=== PATIENT | male | born 1965 | race Two or more races ===

== ENCOUNTER → 2016-11-12 | Outpatient (CLI) | payer OTHER ==
--- NOTE | 2016-11-12 19:04 | REP ---
RIGHT ANKLE SERIES: Four views of the right ankle performed. There is moderate soft tissue swelling laterally. No acute fracture or dislocation is seen. There appear to be old avulsion fractures of the medial malleolus. The ankle mortise is anatomic. There is inferior calcaneal spurring. IMPRESSION: Soft tissue swelling. Old avulsion fractures medial malleolus. No evidence for acute fracture or dislocation. Signed by George Ratliff MD 11/12/2016 07:30 P
--- NOTE | 2016-11-12 19:06 | REP ---
RIGHT FOOT SERIES: Four views of the right foot are performed. No acute fracture or dislocation is seen. There is mild to moderate inferior calcaneal spurring. There is mild narrowing of the first metatarsophalangeal joint. IMPRESSION: No acute fracture or dislocation. Signed by George Ratliff MD 11/12/2016 07:30 P
== END ==
LOC: M LRY 17:27
PROVIDERS: ATTEND Physician Assistant
DX: M25.571 Pain in right ankle and joints of right foot (principal)

== ENCOUNTER → 2020-05-04 | Outpatient (CLI) | payer OTHER ==
[~2020-05-04] MED LIST: AMLO1TAB24 PO; ATOR1TAB21 PO; LISI20TA35 PO
== END ==
LOC: M LABSMTC 08:43
PROVIDERS: ATTEND Anesthesiology
DX: Z01.812 Encounter for preprocedural laboratory examination (principal); Z20.828 Contact with and (suspected) exposure to other viral communicable diseases

== ENCOUNTER 2020-05-09 09:18 | Day surgery (SDC) | payer BC ==
[~2020-05-09] VITALS: Ht 177.8 cm; Wt 117.0 kg
[~2020-05-09 09:18] MED LIST changes: +NS 1,000 ML IV ONE
[2020-05-09] MEDS ORDERED: LIDOCAINE 2% 100MG/5ML SDV (FOR ANES.) As Ordered ONE (10:52)
[2020-05-09] MEDS ORDERED: propofoL 200 MG/20 ML VIAL As Ordered ONE (10:53)
--- NOTE | 2020-05-09 10:56 | ROOR ---
Patient Name: Ebenezer Goyal Procedure Date: 05/09/2020 10:23 AM Date of : 1965 Age: 55 Room: [facility] Gender: Male Note Status: Finalized Procedure: Colonoscopy Indications: Screening in patient at increased risk: Family history of 1st-degree relative with colorectal cancer, Colon cancer screening in patient at increased risk: Family history of colorectal cancer in multiple 2nd degree relatives Providers: Julio MILLER MD Referring MD: Roberto Hdez MD Requesting Provider: Medicines: Monitored Anesthesia Care Complications: No immediate complications. Procedure: Pre-Anesthesia Assessment: - The heart rate, respiratory rate, oxygen saturations, blood pressure, adequacy of pulmonary ventilation, and response to care were monitored throughout the procedure. The Colonoscope was introduced through the anus and advanced to the terminal ileum, with identification of the appendiceal orifice and IC valve. The colonoscopy was performed without difficulty. The patient tolerated the procedure well. The quality of the bowel preparation was fair. Findings: The perianal and digital rectal examinations were normal. Two sessile polyps were found in the sigmoid colon. The polyps were diminutive in size. These polyps were removed with a cold snare. Resection and retrieval were complete. Small Internal Hemorrhoids. The exam was otherwise without abnormality on direct and retroflexion views. Impression: - Preparation of the colon was fair. - Two diminutive polyps in the sigmoid colon, removed with a cold snare. Resected and retrieved. - Small Internal Hemorrhoids. - The examination was otherwise normal on direct and retroflexion views. Recommendation: - Repeat colonoscopy in 5 years for surveillance. Procedure Code(s): --- Professional --- 03321, Colonoscopy, flexible; with removal of tumor(s), polyp(s), or other lesion(s) by snare technique Diagnosis Code(s): --- Professional --- Z80.0, Family history of malignant neoplasm of digestive organs K63.5, Polyp of colon CPT copyright 2019 [employer]. All rights reserved. The codes documented in this report are preliminary and upon bike shop manager review may be revised to meet current compliance requirements. Julio Miller MD Julio MILLER MD 05/09/2020 10:56:35 AM Electronically signed by Julio MILLER MD Number of Addenda: 0 Note Initiated On: 05/09/2020 10:23 AM Estimated Blood Loss: Estimated blood loss: none.
[2020-05-09 11:10] VITALS: BP 137/97
== END 2020-05-09 11:15 | disposition home or self-care (01) ==
LOC: M OPP 09:18
PROVIDERS: ATTEND Internal Medicine Gastroenterology
DX: Z12.11 Encounter for screening for malignant neoplasm of colon (principal); Z80.0 Family history of malignant neoplasm of digestive organs; D12.5 Benign neoplasm of sigmoid colon; K64.8 Other hemorrhoids; I10 Essential (primary) hypertension; E78.5 Hyperlipidemia, unspecified; Z79.899 Other long term (current) drug therapy

== ENCOUNTER → 2024-05-01 | Outpatient (REF) ==
[~2024-05-01] MED LIST changes: -NS 1,000 ML IV ONE
== END ==
LOC: M LAB REF 21:51 → M CAHLAB 21:51
DX: Z00.00 Encounter for general adult medical examination without abnormal findings (principal)

== ENCOUNTER → 2024-12-27 | Outpatient (REF) | LOC: M SLEEP HO 10-23 11:00 | PROVIDERS: ATTEND Registered Nurse | DX: G47.33 Obstructive sleep apnea (adult) (pediatric) (principal); I10 Essential (primary) hypertension; E66.9 Obesity, unspecified ==